=== PATIENT | male | born 1955 | race Caucasian/White ===

== ENCOUNTER → 2018-08-27 07:33 | Outpatient (CLI) | payer OTHER, SELFPAY ==
[2018-08-27 09:37] LABS: Creatinine Urine Random 335.4 mg/dL
[2018-08-27 09:42] LABS: Microalbumi Creatinin Ratio Ur 3.8 ug/mg CR (<30); Microalbumin Urine Random 1.3 mg/dL (0-1.6)
[2018-08-27 09:49] LABS: Alanine Aminotransferase 39 IU/L (21-72); Albumin 4.5 g/dL (3.5-5.0); Albumin Globulin Ratio 1.6 (1.0-2.8); Alkaline Phosphatase 48 U/L (38-126); Aspartate Aminotransferase 23 IU/L (17-59); Bilirubin Total 1.9 mg/dL (0.2-1.3); Blood Urea Nitrogen 14 mg/dL (9-20); Carbon Dioxide 28 mmol/L (22-32); Chloride 102 mmol/L (98-107); Cholesterol 144 mg/dL (140-199); Estimated Glomerular Filt Rate > 60.0 mL/min (>60); Globulin 2.8 g/dL (1.7-4.1); Glucose 99 mg/dL (80-110); HDL Cholesterol 64 mg/dL (40-60); HEMOLYSIS < 15 (0-50); LDL Cholesterol Calculated 62 mg/dL (<100); Potassium 4.6 mmol/L (3.4-5.1); Sodium 141 mmol/L (137-145); Total Protein 7.3 g/dL (6.3-8.2); Triglycerides 88 mg/dL (35-150)
[2018-08-27 10:04] LABS: Prostate Specific Antigen Scrn 1.57 ng/mL (0.1-4.0)
== END ==
PROVIDERS: PCP Family Medicine; Visit Provider Family Medicine
DX: E78.5 Hyperlipidemia, unspecified (principal); I10 Essential (primary) hypertension; Z00.00 Encounter for general adult medical examination without abnormal findings; Z12.5 Encounter for screening for malignant neoplasm of prostate
CPT/HCPCS: 36415; 80053; 80061; 82043; 82570; G0103

== ENCOUNTER 2019-01-17 07:43 | Day surgery (SDC) | payer OTHER, SELFPAY ==
--- NOTE | 2019-01-17 | PATH_ITS ---
[facility] Accession Number: [id number] . 01 Material submitted: . PART A: colon - TRANSVERSE COLON POLYPS PART B: rectum - RECTAL POLYPS . 01 Clinical history: . SCREENING COLONOSCOPY . 02 Diagnosis: A. Transverse Colon, Polyps, Biopsies: Tubular adenomas. . B. Rectum, Polyps, Biopsies: Tubular adenoma. Hyperplastic polyp. MRV/01/18/2019 . 02 Electronically signed: . Taylor Villanueva MD, Pathologist NPI- [id number] . 01 Gross description: . Part A: TRANSVERSE COLON POLYPS: Received in formalin are 2 fragment(s) of humphrey, soft tissue measuring 0.1 x 0.1 x 0.1 cm to 0.2 x 0.2 x 0.2 cm which is entirely submitted and submitted entirely in 1 cassette(s) Part B: RECTAL POLYPS: Received in formalin are 2 fragment(s) of humphrey, soft tissue measuring 0.2 x 0.2 x 0.2 cm to 0.3 x 0.3 x 0.2 cm which is entirely submitted and submitted entirely in 1 cassette(s) /DMC /DMC . 02 Pathologist provided ICD-10: D12.3, D12.8 . 02 CPT . 075879, 253901 Performed at: 01 [facility] [address], [place], [place] [id number] MD Zoltan Simpson MD Phone: [phone] Performed at: 02 [facility] [address] [place], [place] [id number] MD Taylor Villanueva MD Phone: [phone]
[2019-01-17 08:15] VITALS: BMI 27.3
[2019-01-17 08:18] VITALS: BP 142/92; PULSE 79; RESP 17; TEMP 36.3; O2SAT 94
--- NOTE | 2019-01-17 09:05 | PM.HP.1 ---
History of Present Illness Date Patient Seen: 01/17/19 Time Patient Seen: 09:05 Chief complaint: [id number] SCREENING COLONOSCOPY Narrative: 63-year-old man presents 10 years status post last screening colonoscopy. No family history of colorectal cancers, no known family history of colon polyps Without intestinal complaints today Prep went well Patient History Medical History (Updated 12/08/17 @ 08:45 by Josselyn Miranda) Hypertension (Chronic ~2013) Seasonal allergies (Chronic) Chickenpox (Resolved ~1959) Surgical History (Updated 12/08/17 @ 08:45 by Josselyn Miranda) Anesthesia (Inactive) History of cataract removal with insertion of prosthetic lens (~2013) Family History (Updated 05/26/16 @ 00:00 by Oksana Munoz DO) Brother Age: 62 Diabetes mellitus Brother Age: 64 Diabetes mellitus Father Age: 89 Hypertension Mother History of lymphoma Tobacco use Alcohol abuse Depression Social History household members: spouse Family & Social History Family History (Updated 05/26/16 @ 00:00 by Oksana Munoz DO) Brother Age: 62 Diabetes mellitus Brother Age: 64 Diabetes mellitus Father Age: 89 Hypertension Mother History of lymphoma Tobacco use Alcohol abuse Depression Social History: household members spouse Meds Home Medications Medication Instructions Recorded Confirmed Type OMEGA-3 FATTY ACIDS (FISH OIL) #0 03/25/16 09/05/18 History aspirin 81 mg PO DAILY #0 03/25/16 01/17/19 History cholecalciferol (vitamin D3) 2,000 mg PO DAILY #0 03/25/16 01/17/19 History [Vitamin D3] loratadine [Claritin Liqui-Gel] 10 mg PO QDAY #0 sgl 03/25/16 01/17/19 History losartan 50 mg PO BID #90 tab 03/07/18 01/17/19 Rx atorvastatin 10 mg tablet 10 mg PO QDAY #90 tab 01/14/19 01/17/19 Rx Allergies Allergy/AdvReac Type Severity Reaction Status Date / Time No Known Drug Allergies Allergy Verified 01/17/19 08:12 Review of Systems Constitutional Constitutional: Denies fever(s) Eyes Eyes: Denies bulging eyes ENT Ears, Nose, Mouth, and Throat: No lip swelling Cardiovascular Cardiovascular: Denies generalize swelling Respiratory Respiratory: Denies stridor Gastrointestinal Gastrointestinal: Denies coffee ground emesis Musculoskeletal Musculoskeletal: Denies loss of height Integumentary/Breasts Skin/Breast: Denies wounds Neurologic Neurologic: Denies abnormal speech and Denies confusion Psychiatric Psychiatric: Denies confusion Endocrine Endocrine: Denies deepening of the voice Hematologic/Lymphatic Hematologic/Lymphatic: Denies lymphadenopathy Allergic/Immunologic Allergic/Immunologic: Denies lip swelling Exam Vital Signs (past 8 hours): - 01/17/19 08:18 Temperature 97.4 F L Pulse Rate 79 Respiratory Rate 17 Blood Pressure 142/92 H Pulse Oximetry 94 Oxygen Delivery Method Room Air Const General: cooperative and healthy appearing Orientation: alert [facility] Head: normal to inspection Nose: nares normal Mouth: oral mucosae normal and lip normal Eyes Eyelids: eyelids normal Conjunctivae: conjunctivae normal Sclera: sclerae normal Neck Neck: supple and other (No thyromegally) Chest Chest: other (LCTAB , regular respiratory effort) Cardio Rhythm: regular rhythm Heart Sounds: S1 normal, S2 normal, no gallops, no murmurs and no rubs GI Other: Abdomen soft nontender nondistended Skin General: no rashes or lesions noted Neuro General: alert and awake Psych Appearance: grossly normal Affect: normal affect Assessment & Plan Assessment & Plan narrative: 63-year-old man presents for screening colonoscopy 10 years status post prior Risks and benefits of the procedure discussed including risk of , perforation, hypoxia, missed lesion All questions answered. Patient ready to proceed
[2019-01-17] MEDS: fentaNYL 250 MCG/5 ML INJ IV (09:21)
[2019-01-17] MEDS: MIDAZOLAM 5 MG/5 ML VIAL IV (09:34)
[2019-01-17] MEDS: GLUCAGON,HUMAN RECOMBINANT 1 MG/ML VIAL IV (09:39)
--- NOTE | 2019-01-17 09:45 | SUR.OPER ---
TOLERATED WELL, VITAL SIGNS STABLE
--- NOTE | 2019-01-17 09:53 | PM.OP.ENDO ---
Operative Date/Time/Diagnoses Date of procedure: 01/17/19 Time of procedure: 09:53 Pre-op diagnosis: Colorectal cancer screening Post-op diagnosis: same Procedure & Clinicians Study performed: Screening colonoscopy-complete Transverse colon polypectomy -cold biopsy forceps Transverse colon polypectomy -hot snare Rectal polypectomy x2 -cold biopsy forceps Same procedure as scheduled: Yes Indications: 63-year-old man with average risk of colorectal cancer presents 10 years status post most recent screening colonoscopy Surgeon: Rickie Carrillo Procedure Notes SCOAP/Timeout: Completed Procedure in detail: Patient was brought to the endoscopy suite, a time-out was completed. He was sedated over the entire course of the procedure with 150 micro g of fentanyl and 6 mg of midazolam. A digital rectal exam was performed without findings. 160 cm colonoscope was advanced through the anus and the folds of the rectum and colon until the cecum was reached. The cecum was identified via prominent ileocecal valve and appendiceal orifice. The scope was then carefully withdrawn inspecting the mucosal surfaces as this was done. A few scattered right-sided diverticula were noted. At the level of the transverse colon a small sessile polyp was identified. This was removed with cold biopsy forceps. Several cm more distal an additional small sessile polyp was identified -this was removed with hot snare -and captured via suction trap. The remainder of the colon appeared unremarkable Within the mid rectum -2 additional small sessile polyps were identified and removed via cold biopsy forcep The scope was retroflexed in the distal rectum without difficulty without further findings Prep was excellent Scope withdrawal time: 26 Sedation minutes: 40 Specimen(s): other (Transverse colon polyps x2, rectal polyps x2) Complications: none Impression: -right-sided diverticula -transverse polyp x2 -rectal polyp x2 Recommendations: Colonscopy in 3 years Plan for aftercare: PACU then home Follow up: as needed Disposition: PACU
[2019-01-17 09:57] VITALS: BP 106/70; PULSE 74; RESP 10; TEMP 36.5; O2SAT 96
[2019-01-17 10:02] VITALS: BP 109/76; PULSE 72; RESP 10; O2SAT 95
[2019-01-17 10:07] VITALS: BP 99/69; PULSE 67; RESP 11; O2SAT 94
[2019-01-17 10:13] VITALS: BP 100/65; PULSE 67; RESP 14; O2SAT 96
[2019-01-17 10:26] VITALS: BP 111/76; PULSE 65; RESP 16; TEMP 36.5; O2SAT 97
== END 2019-01-17 10:26 | disposition home or self-care (01) ==
PROVIDERS: PCP Family Medicine; Visit Provider Surgery
PROC: 0DJD8ZZ Inspection of Lower Intestinal Tract, Via Natural or Artificial Opening Endoscopic (ICD-10-PCS; CPT 45378; principal; 2019-01-17 08:45)
DX: Z12.11 Encounter for screening for malignant neoplasm of colon (principal); K57.30 Diverticulosis of large intestine without perforation or abscess without bleeding; D12.3 Benign neoplasm of transverse colon; D12.8 Benign neoplasm of rectum
CPT/HCPCS: 45385; 45380; 99152; 99153; J1610; J2250; J3010

== ENCOUNTER → 2019-12-20 07:23 | Outpatient (CLI) | payer OTHER, SELFPAY ==
[2019-12-20 08:15] LABS: Alanine Aminotransferase 24 IU/L (<50); Albumin 4.5 g/dL (3.5-5.0); Albumin Globulin Ratio 1.8 (1.0-2.8); Alkaline Phosphatase 44 U/L (38-126); Aspartate Aminotransferase 28 IU/L (17-59); BUN Creatinine Ratio 18.6 (6-22); Bilirubin Total 2.1 mg/dL (0.2-1.3); Blood Urea Nitrogen 18 mg/dL (9-20); Calcium 9.4 mg/dL (8.4-10.2); Carbon Dioxide 29 mmol/L (22-32); Chloride 104 mmol/L (98-107); Cholesterol 156 mg/dL (140-199); Estimated Glomerular Filt Rate > 60.0 mL/min (>60); Globulin 2.5 g/dL (1.7-4.1); Glucose 106 mg/dL (80-110); HDL Cholesterol 58 mg/dL (40-60); HEMOLYSIS < 15 (0-50); LDL Cholesterol Calculated 76 mg/dL (<100); Sodium 138 mmol/L (137-145); Triglycerides 111 mg/dL (35-150)
== END ==
PROVIDERS: PCP Family Medicine; Referring Provider Family Medicine; Visit Provider Family Medicine
DX: E78.5 Hyperlipidemia, unspecified (principal); I10 Essential (primary) hypertension
CPT/HCPCS: 36415; 80053; 80061

== ENCOUNTER → 2020-09-08 12:58 | Outpatient (CLI) | payer OTHER, SELFPAY ==
[2020-09-08] MEDS: COVID-19 VACC #1, MRNA(MOD) 100 MCG/0.5 ML VIAL IM (13:07)
== END ==
PROVIDERS: PCP Family Medicine; Visit Provider Internal Medicine
DX: Z23 Encounter for immunization (principal)
CPT/HCPCS: 0011A; 91301

== ENCOUNTER → 2020-10-02 15:11 | Outpatient (CLI) | payer OTHER, SELFPAY ==
[2020-10-02] MEDS: COVID-19 VACC #2, MRNA(MOD) 100 MCG/0.5 ML VIAL IM (15:20)
== END ==
PROVIDERS: PCP Family Medicine; Visit Provider Internal Medicine
DX: Z23 Encounter for immunization (principal)
CPT/HCPCS: 0012A; 91301

== ENCOUNTER → 2021-03-30 07:53 | Outpatient (CLI) | payer OTHER, SELFPAY ==
[2021-03-30 09:19] LABS: Alanine Aminotransferase 23 IU/L (<50); Albumin 4.4 g/dL (3.5-5.0); Albumin Globulin Ratio 1.6 (1.0-2.8); Alkaline Phosphatase 41 U/L (38-126); Aspartate Aminotransferase 24 IU/L (17-59); BUN Creatinine Ratio 17.2 (6-22); Bilirubin Total 1.8 mg/dL (0.2-1.3); Blood Urea Nitrogen 17 mg/dL (9-20); Calcium 9.1 mg/dL (8.4-10.2); Carbon Dioxide 30 mmol/L (22-32); Chloride 104 mmol/L (98-107); Cholesterol 163 mg/dL (140-199); Estimated Glomerular Filt Rate > 60.0 mL/min (>60); Globulin 2.7 g/dL (1.7-4.1); Glucose 100 mg/dL (80-110); HDL Cholesterol 66 mg/dL (40-60); HEMOLYSIS < 15 (0-50); LDL Cholesterol Calculated 76 mg/dL (<100); Potassium 4.3 mmol/L (3.4-5.1); Sodium 140 mmol/L (137-145); Total Protein 7.1 g/dL (6.3-8.2); Triglycerides 106 mg/dL (35-150)
[2021-03-30 09:44] LABS: Prostate Specific Antigen Scrn 1.74 ng/mL (0.1-4.0)
[2021-03-30 10:28] LABS: Creatinine Urine Random 147.1 mg/dL
[2021-04-02 16:55] LABS: Microalbumi Creatinin Ratio Ur 6.1 ug/mg CR (<30); Microalbumin Urine Random 0.9 mg/dL (0-1.6)
== END ==
PROVIDERS: PCP Family Medicine; Referring Provider Family Medicine; Visit Provider Family Medicine
DX: E78.5 Hyperlipidemia, unspecified (principal); N13.8 Other obstructive and reflux uropathy; N40.1 Benign prostatic hyperplasia with lower urinary tract symptoms; R17 Unspecified jaundice; R73.01 Impaired fasting glucose; Z12.5 Encounter for screening for malignant neoplasm of prostate
CPT/HCPCS: 36415; 80053; 80061; 82043; 82570; G0103

== ENCOUNTER → 2021-11-04 08:07 | Outpatient (CLI) | payer MEDICARE, SELFPAY ==
[2021-11-04 09:40] LABS: Add Manual Diff / Slide Review NO; Basophils Absolute Auto 0 /uL (0-100); Basophils Percent Auto 0.6 % (0-2); Eosinophils Absolute Auto 100 /uL (0-450); Eosinophils Percent Auto 1.6 % (2-4); Hemoglobin 15.3 g/dL (13.5-17.5); Lymphocytes Absolute Auto 1800 /uL (1100-4500); Lymphocytes Percent Auto 33.2 % (25-40); Mean Corpuscular HGB Conc 34.7 % (30-36); Mean Corpuscular Hemoglobin 30.9 PG (26-34); Mean Corpuscular Volume 89.1 fL (80-100); Monocytes Absolute Auto 400 /uL (0-900); Monocytes Percent Auto 7.6 % (3-14); Neutrophils Absolute Auto 3100 /uL (1500-7000); Platelet Count 183 X10^3/uL (150-400); Red Blood Cell Count 4.94 X10^6/uL (4.5-5.9); Red Cell Distribution Width 13.3 % (11.6-14.8); White Blood Cell Count 5.4 X10^3/uL (4.5-11.0)
[2021-11-04 09:47] LABS: Hemoglobin A1C% w Est Avg Glu 5.4 % (4.0-6.0)
[2021-11-04 10:08] LABS: Alanine Aminotransferase 29 IU/L (<50); Albumin 4.4 g/dL (3.5-5.0); Albumin Globulin Ratio 1.8 (1.0-2.8); Alkaline Phosphatase 43 U/L (38-126); Aspartate Aminotransferase 28 IU/L (17-59); BUN Creatinine Ratio 15.6 (6-22); Bilirubin Total 1.8 mg/dL (0.2-1.3); Blood Urea Nitrogen 15 mg/dL (9-20); Calcium 8.8 mg/dL (8.4-10.2); Carbon Dioxide 25 mmol/L (22-32); Chloride 104 mmol/L (98-107); Cholesterol 136 mg/dL (140-199); Estimated Glomerular Filt Rate > 60 mL/min (>60); Globulin 2.5 g/dL (1.7-4.1); Glucose 103 mg/dL (80-110); HDL Cholesterol 51 mg/dL (40-60); HEMOLYSIS < 15 (0-50); LDL Cholesterol Calculated 69 mg/dL (<100); Potassium 4.4 mmol/L (3.4-5.1); Sodium 137 mmol/L (137-145); Total Protein 6.9 g/dL (6.3-8.2); Triglycerides 81 mg/dL (35-150)
[2021-11-04 10:33] LABS: Creatinine Urine Random 142.8 mg/dL
[2021-11-04 10:37] LABS: Microalbumi Creatinin Ratio Ur 5.6 ug/mg CR (<30); Microalbumin Urine Random 0.8 mg/dL (0-1.6)
[2021-11-04 10:38] LABS: Prostate Specific Antigen 1.69 ng/mL (0.10-4.00)
== END ==
PROVIDERS: PCP Family Medicine; Referring Provider Family Medicine; Visit Provider Family Medicine
DX: E78.00 Pure hypercholesterolemia, unspecified (principal); R73.01 Impaired fasting glucose; I10 Essential (primary) hypertension; N40.1 Benign prostatic hyperplasia with lower urinary tract symptoms; N13.8 Other obstructive and reflux uropathy; R17 Unspecified jaundice
CPT/HCPCS: 36415; 80053; 80061; 82043; 82570; 83036; 84153; 85025

== ENCOUNTER → 2022-03-23 13:45 | Outpatient (CLI) | payer MEDICARE, SELFPAY ==
[2022-03-23 15:24] LABS: COVID19 -Nasal RAPID Negative (Negative)
== END ==
PROVIDERS: PCP Family Medicine; Visit Provider Surgery
DX: Z20.822 Contact with and (suspected) exposure to COVID-19 (principal); Z01.812 Encounter for preprocedural laboratory examination
CPT/HCPCS: 87635; C9803

== ENCOUNTER 2022-03-24 10:29 | Day surgery (SDC) | payer MEDICARE, SELFPAY ==
--- NOTE | 2022-03-24 | PATH_ITS ---
[facility] Accession Number: [id number] . 01 Material submitted: . PART A: cecum - CECAL POLYP X3 PART B: colon - ASCENDING POLYPS . 01 Diagnosis: A. Cecum, Polyp x3, Biopsy: Colonic mucosa with a benign lymphoid aggregate in 1 of 3 fragments. 2 fragments with mild surface hyperplastic changes. Additional levels were examined. Negative for dysplasia and malignancy. . B. Ascending Colon, Polyps, Biopsies: Tubular adenoma. Sessile serrated adenoma. MRV 03/29/2022 1712 Local . 01 Electronically signed: . Taylor Villanueva MD, Pathologist NPI- [id number] . 01 Gross description: . Part A: CECAL POLYP X3: Received in formalin are 3 fragment(s) of humphrey, soft tissue measuring 0.4 x 0.3 x 0.1 cm submitted entirely in 1 cassette(s) Part B: ASCENDING POLYPS: Received in formalin are 2 fragment(s) of humphrey, soft tissue measuring 0.4 x 0.1 x 0.1 cm to 0.2 x 0.1 x 0.1 cm submitted entirely in 1 cassette(s) /CPE 03/26/2022 0608 Local . 01 Pathologist provided ICD-10: D12.2 . 01 CPT . 090730, 191646 Specimen Comment: A courtesy copy of this report has been sent to [phone] Performed at: 01 [facility] [address] [place] [address], [place], [place] [id number] MD Zoltan Simpson MD Phone: [phone]
[2022-03-24 10:57] VITALS: BP 152/97; PULSE 59; RESP 66; TEMP 36.2; O2SAT 95; BMI 28.4
--- NOTE | 2022-03-24 11:57 | PM.HP.1 ---
History of Present Illness History of Present Illness Date Patient Seen: 03/24/22 Time Patient Seen: 11:57 Chief complaint: SCREENING COLONOSCOPY Narrative: Marco A is a 66-year-old man who has had polyps on prior colonoscopies. His last colonoscopy was about 3 years ago and there were multiple tubular adenomas resected. Patient History Medical History (Updated 03/24/22 @ 11:58 by Jimbo Ramirez MD) Atypical chest pain Chickenpox (~1959) Hypertension (~2013) Seasonal allergies Surgical History (Updated 12/08/17 @ 08:45 by Josselyn Miranda) Anesthesia History of cataract removal with insertion of prosthetic lens (~2013) Family & Social History Family History (Updated 05/26/16 @ 00:00 by Oksana Munoz DO) Brother Age: 65 Diabetes mellitus Brother Age: 67 Diabetes mellitus Father Age: 92 Hypertension Mother History of lymphoma Tobacco use Alcohol abuse Depression Social History: household members spouse Tobacco & Substance use: Smoking Status Never smoker alcohol intake current alcohol intake frequency 0-2 drinks per day Substance Use Type marijuana Meds Home Medications and Allergies Home Medications Medication Instructions Recorded Confirmed Type OMEGA-3 FATTY ACIDS (FISH OIL) ##0 03/25/16 11/16/21 History cholecalciferol (vitamin D3) 50 2,000 mg PO DAILY ##0 03/25/16 03/24/22 History mcg (2,000 unit) capsule (Vitamin D3) loratadine 10 mg capsule (Claritin 10 mg PO QDAY ##0 03/25/16 03/24/22 History Liqui-Gel) saw palmetto 1,000 mg capsule 1,000 mg PO DAILY 02/10/20 03/24/22 History atorvastatin 10 mg tablet (Lipitor) 10 mg PO QDAY #90 tabs 10/22/21 03/24/22 Rx losartan 100 mg tablet 100 mg PO DAILY #90 tabs 10/22/21 03/24/22 Rx sildenafil 100 mg tablet See Rx Instructions PO DAILY PRN 11/16/21 03/24/22 Rx sexual activity #10 tabs tamsulosin 0.4 mg capsule 0.4 mg PO BEDTIME #90 caps 11/16/21 03/24/22 Rx Allergies Allergy/AdvReac Type Severity Reaction Status Date / Time No Known Drug Allergies Allergy Verified 03/24/22 10:44 Exam Vital Signs (past 8 hours): - 10/06/22 10:57 Temperature 97.2 F L Pulse Rate 59 L Respiratory Rate 66 H Blood Pressure 152/97 H Pulse Oximetry 95 Oxygen Delivery Method Room Air Oxygen Delivery Method Room Air Const General: No acute distress Assessment & Plan Assessment and plan (1) Personal history of colonic polyps: Status: Acute Plan Marco A is a 66-year-old man who is here for colonoscopy for surveillance because of a history of colon polyps. We reviewed the risks and benefits and he would like to proceed. Time Spent With Patient Critical Care time: I spent a total of [] minutes of critical care time on this patient's care today; this time is exclusive of procedural time.
[2022-03-24] MEDS: fentaNYL 100 MCG/2 ML INJ IV (12:01)
[2022-03-24] MEDS: MIDAZOLAM 5 MG/5 ML VIAL 6 MG IV (12:01)
--- NOTE | 2022-03-24 12:30 | PM.OP.COLON ---
Operative Date/Time/Diagnoses Date of procedure: 03/24/22 Time of procedure: 12:30 Pre-op diagnosis: History of colon polyps Post-op diagnosis: same Procedure & Clinicians Study performed: Colonoscopy Same procedure as scheduled: Yes Surgeon: Jimbo Ramirez Procedure Notes Procedure in detail: Surgeon: Jimbo Ramirez MD Procedure: The patient was brought to the endoscopy suite, placed in left lateral decubitus position. The patient was connected to monitoring devices. A time-out was performed. Sedation was administered. Once the patient was adequately sedated, a digital rectal exam was performed and was normal. The scope was then inserted and advanced to the cecum where the appendiceal orifice was identified and photographed. The scope was then slowly withdrawn over greater than 6 minutes. The mucosa was thoroughly inspected. There were 3 small polyps in the cecum, each about 3 mm, each removed with a cold snare. There were a pair of 3 mm polyp ascending colon cold snare. The scope was retroflexed in the rectum. The scope was straightened and removed. The patient was awakened and brought to recovery. Versed: 6 mg Fentanyl: 100 mcg EBL: 5 mL Findings: 3 cecal polyps in 2 ascending colon polyps each about 3 mm. Scope withdrawal time: 18 Sedation minutes: 26 Post-procedure Recommendations: Will call with biopsy results Disposition: PACU
[2022-03-24 12:32] VITALS: BP 115/83; PULSE 64; RESP 15; TEMP 36.3; O2SAT 99
[2022-03-24 12:37] VITALS: BP 111/80; PULSE 62; RESP 14; O2SAT 98
== END 2022-03-24 12:55 | disposition home or self-care (01) ==
PROVIDERS: PCP Family Medicine; Referring Provider Surgery; Visit Provider Surgery
PROC: 0DJD8ZZ Inspection of Lower Intestinal Tract, Via Natural or Artificial Opening Endoscopic (ICD-10-PCS; CPT 45378; principal; 2022-03-24 11:30)
DX: Z12.11 Encounter for screening for malignant neoplasm of colon (principal); Z86.010 Personal history of colon polyps; D12.2 Benign neoplasm of ascending colon
CPT/HCPCS: 45385; 99152; 99153; J2250; J3010

== ENCOUNTER 2022-10-03 14:11 | Emergency (ER) | payer MEDICARE, SELFPAY ==
[2022-10-03] VITALS (9 sets, daily range): BP systolic 138–172; BP diastolic 88–93; PULSE 69–86; RESP 15–18; TEMP 36.6; O2SAT 97–98; BMI 27.7
--- NOTE | 2022-10-03 14:23 | DI.RAD.S_ITS ---
PROCEDURE: XR CHEST 1V INDICATIONS: chest pain TECHNIQUE: One view of the chest was acquired. COMPARISON: [facility], , CHEST 1 VIEW, 03/25/2016, 10:22. FINDINGS: Surgical changes and devices: None. Lungs and pleura: Lungs are clear. No pleural effusions or pneumothorax. Mediastinum: Mediastinal contours appear normal. Heart size is normal. Bones and chest wall: No suspicious bony lesions. Overlying soft tissues appear unremarkable. IMPRESSION: No acute cardiopulmonary process. Dictated by: Maciej Belcher M.D. on 10/03/2022 at 14:46 Approved by: Maciej Belcher M.D. on 10/03/2022 at 14:47
[2022-10-03 14:38] LABS: Add Manual Diff / Slide Review NO; Basophils Absolute Auto 0 /uL (0-100); Basophils Percent Auto 0.5 % (0-2); Eosinophils Absolute Auto 100 /uL (0-450); Eosinophils Percent Auto 1.3 % (2-4); Hematocrit 47.8 % (41-53); Hemoglobin 16.7 g/dL (13.5-17.5); Lymphocytes Absolute Auto 2600 /uL (1100-4500); Lymphocytes Percent Auto 29.8 % (25-40); Mean Corpuscular Hemoglobin 31.2 PG (26-34); Monocytes Absolute Auto 500 /uL (0-900); Monocytes Percent Auto 5.7 % (3-14); Neutrophils Absolute Auto 5600 /uL (1500-7000); Neutrophils Percent Auto 62.7 % (50-75); Platelet Count 196 X10^3/uL (150-400); Red Blood Cell Count 5.37 X10^6/uL (4.5-5.9); Red Cell Distribution Width 14.1 % (11.6-14.8); White Blood Cell Count 8.9 X10^3/uL (4.5-11.0)
[2022-10-03 14:45] LABS: INR 1.1 (0.9-1.3); Prothrombin Time 13.1 SECONDS (10.1-12.7)
[2022-10-03 14:48] LABS: PTT Partial Thromboplastin Tim 28 SECONDS (26-36)
[2022-10-03 14:54] LABS: Blood Urea Nitrogen 13 mg/dL (9-20); Carbon Dioxide 30 mmol/L (22-32); Chloride 100 mmol/L (98-107); Creatine Kinase 69 U/L (55-170); HEMOLYSIS < 15 (0-50); Potassium 3.8 mmol/L (3.4-5.1); Sodium 140 mmol/L (137-145)
[2022-10-03 14:55] LABS: Alanine Aminotransferase 32 IU/L (<50); Albumin 4.5 g/dL (3.5-5.0); Albumin Globulin Ratio 1.3 (1.0-2.8); Alkaline Phosphatase 64 U/L (38-126); Aspartate Aminotransferase 28 IU/L (17-59); BUN Creatinine Ratio 15.3 (6-22); Bilirubin Total 1.5 mg/dL (0.2-1.3); Calcium 9.2 mg/dL (8.4-10.2); Estimated Glomerular Filt Rate > 60 mL/min (>60); Globulin 3.6 g/dL (1.7-4.1); Glucose 134 mg/dL (80-110); Lipase 320 U/L (23-300); Magnesium 1.9 mg/dL (1.6-2.3); Total Protein 8.1 g/dL (6.3-8.2)
[2022-10-03 15:05] LABS: Troponin I < 0.012 ng/mL (0.01-0.034)
--- NOTE | 2022-10-03 15:05 | PC.NURSE ---
Patient took 3 baby aspirin prior to arrival. Dr. Pappas notified and asked if he wanted to give the 4th 81mg. Provider stated 3 was sufficient. 324mg aspirin order placed not given in MAR per provider.
[2022-10-03 15:06] LABS: COVID19 -Nasal RAPID Negative (Negative)
--- NOTE | 2022-10-03 15:34 | ED_ITS ---
HPI - Chest Pain General Chief Complaint: Chest Pain Stated Complaint: chest pain T-1 Time Seen by Provider: 10/03/22 14:29 Source: patient and family Mode of arrival: Ambulatory Limitations: no limitations History of Present Illness HPI narrative: Patient is a 67 year old male who is here for evaluation approximately 24 hours of left-sided chest discomfort. He states it has been consistent during that time. It is a dull pain that is on the left side of his chest. Does not radiate anywhere. No shortness of breath. No lightheadedness. No skin changes. Abdominal pain nausea vomiting. He was sitting at the time of onset. Not worse with palpation or movement. He has had this discomfort in the past and was seen here in the emergency department without specific etiology. He is not had a stress test since that time. That was a couple years ago. He did have a stress test greater than 20 years ago. He did take aspirin prior to arrival. Related Data Home Medications Medication Instructions Recorded Confirmed OMEGA-3 FATTY ACIDS (FISH OIL) ##0 03/25/16 11/16/21 cholecalciferol (vitamin D3) 50 2,000 mg PO DAILY ##0 03/25/16 03/24/22 mcg (2,000 unit) capsule (Vitamin D3) loratadine 10 mg capsule (Claritin 10 mg PO QDAY ##0 03/25/16 03/24/22 Liqui-Gel) saw palmetto 1,000 mg capsule 1,000 mg PO DAILY 02/10/20 03/24/22 Previous Rx's Medication Instructions Recorded atorvastatin 10 mg tablet (Lipitor) 10 mg PO QDAY #90 tabs 10/22/21 tamsulosin 0.4 mg capsule 0.4 mg PO BEDTIME #90 caps 11/16/21 losartan 100 mg tablet 50 mg PO DAILY #90 tabs 06/21/22 nifedipine 30 mg tablet,extended 30 mg PO DAILY #60 tabs 06/21/22 release sildenafil 100 mg tablet See Rx Instructions .Route 09/12/22 .COMPLEX #10 tabs Allergies Allergy/AdvReac Type Severity Reaction Status Date / Time No Known Drug Allergies Allergy Verified 03/24/22 10:44 Review of Systems Constitutional Constitutional: Reports system reviewed and no additional complaints, except as documented Cardiovascular Cardiovascular: Reports system reviewed and no additional complaints, except as documented Respiratory Respiratory: Reports system reviewed and no additional complaints, except as documented Gastrointestinal Gastrointestinal: Reports system reviewed and no additional complaints, except as documented Integumentary/Breasts Skin/Breast: Reports system reviewed and no additional complaints, except as documented Neurologic Neurologic: Reports system reviewed and no additional complaints, except as documented Hematologic/Lymphatic On Anticoagulants: No Patient History Medical History Atypical chest pain Chickenpox (~1959) Hypertension (~2013) Seasonal allergies Surgical History (Updated 12/08/17 @ 08:45 by Josselyn Miranda) Anesthesia History of cataract removal with insertion of prosthetic lens (~2013) Family History (Updated 05/26/16 @ 00:00 by Oksana Munoz DO) Brother Age: 66 Diabetes mellitus Brother Age: 68 Diabetes mellitus Father Age: 93 Hypertension Mother History of lymphoma Tobacco use Alcohol abuse Depression Social History household members: spouse Smoking Status: Never smoker alcohol intake: current Smoking Status: Never smoker alcohol intake frequency: 0-2 drinks per day Substance Use Type: marijuana Exam Initial Vital Signs Initial Vital Signs: Vital Signs Temperature 97.8 F 10/03/22 14:15 Pulse Rate 86 10/03/22 14:15 Respiratory Rate 16 10/03/22 14:15 Blood Pressure 172/93 H 10/03/22 14:15 Pulse Oximetry 97 10/03/22 14:15 Oxygen Delivery Method Room Air 10/03/22 14:15 Const General: cooperative, comfortable and No ill appearing HENMT Head: normal to inspection and normocephalic Chest Chest: No crepitus and No tenderness Resp Effort & Inspection: normal respiratory effort Auscultation: clear to auscultation bilaterally Cardio Rate: regular rate Rhythm: regular rhythm GI Inspection: normal to inspection and non-distended Palpation: soft and No tender Skin General: no rashes or lesions noted Extrem General: No edema Scores HEART Score Heart Score history: Slightly Suspicious Heart Score EKG: Normal Heart Score Age: > or = 65 years old Heart Score risk factors: 1-2 risk factors Heart Score troponin: < or = to normal limit Heart Score Total: 3 Course Orders Ordered: ED Orders 10/03/22 14:23 XR chest 1V Stat EKG-12 Lead Stat 10/03/22 14:25 Complete Blood Count AUTO DIFF Stat Comprehensive Metabolic Panel Stat Lipase Stat Magnesium Stat PTT Partial Thromboplastin Clarence Stat Prothrombin Time INR Stat Troponin & CK Cardiac Panel Stat 10/03/22 14:40 COVID19 -Nasal RAPID Stat Discontinued Medications Aspirin (Aspirin 81 Mg Chew Tab) 324 mg PO NOW ONE Stop: 10/03/22 14:24 Last Admin: 10/03/22 15:05 Dose: Not Given Documented By: RB Vital Signs Vital signs: Vital Signs - 8 hr 10/03/22 14:15 10/03/22 14:20 10/03/22 14:20 Temperature 97.8 F Pulse Rate 86 82 Respiratory Rate 16 Blood Pressure 172/93 H 172/93 H Pulse Oximetry 97 98 Oxygen Delivery Method Room Air 10/03/22 14:30 10/03/22 14:45 10/03/22 15:00 Temperature Pulse Rate 79 75 73 Respiratory Rate 15 18 Blood Pressure Pulse Oximetry 98 98 98 Oxygen Delivery Method 10/03/22 15:15 Temperature Pulse Rate 73 Respiratory Rate 16 Blood Pressure Pulse Oximetry 97 Oxygen Delivery Method MDM - Chest Pain Lab Data Attestation: I reviewed the patient's lab results. 10/03/22 14:25 10/03/22 14:25 Labs: Lab Results 10/03/22 10/03/22 10/03/22 Range/Units 14:25 14:25 14:25 WBC 8.9 (4.5-11.0) X10^3/uL RBC 5.37 (4.5-5.9) X10^6/uL Hgb 16.7 (13.5-17.5) g/dL Hct 47.8 (41-53) % MCV 89.0 (80-100) fL MCH 31.2 (26-34) PG MCHC 35.0 (30-36) % RDW 14.1 (11.6-14.8) % Plt Count 196 (150-400) X10^3/uL Neut % (Auto) 62.7 (50-75) % Lymph % (Auto) 29.8 (25-40) % [place] % (Auto) 5.7 (3-14) % Eos % (Auto) 1.3 L (2-4) % Baso % (Auto) 0.5 (0-2) % Neut # (Auto) 5600 (1534-0677) /uL Lymph # (Auto) 2600 (6169-0763) /uL [place] # (Auto) 500 (0-900) /uL Eos # (Auto) 100 (0-450) /uL Baso # (Auto) 0 (0-100) /uL PT 13.1 H (10.1-12.7) SECONDS INR 1.1 (0.9-1.3) APTT 28 (26-36) SECONDS Sodium 140 (137-145) mmol/L Potassium 3.8 (3.4-5.1) mmol/L Chloride 100 (98-107) mmol/L Carbon Dioxide 30 (22-32) mmol/L BUN 13 (9-20) mg/dL Creatinine 0.85 (0.66-1.25) mg/dL Estimated GFR > 60 (>60) mL/min BUN/Creatinine Ratio 15.3 (6-22) Glucose 134 H (80-110) mg/dL Calcium 9.2 (8.4-10.2) mg/dL Magnesium 1.9 (1.6-2.3) mg/dL Total Bilirubin 1.5 H (0.2-1.3) mg/dL AST 28 (17-59) IU/L ALT 32 (<50) IU/L Alkaline Phosphatase 64 (38-126) U/L Total Creatine Kinase 69 (55-170) U/L CK-MB (CK-2) TNP CK-MB (CK-2) Rel Index TNP Troponin I < 0.012 (0.01-0.034) ng/mL Total Protein 8.1 (6.3-8.2) g/dL Albumin 4.5 (3.5-5.0) g/dL Globulin 3.6 (1.7-4.1) g/dL Albumin/Globulin Ratio 1.3 (1.0-2.8) Lipase 320 H (23-300) U/L SARS-CoV-2 (PCR) (Negative) 10/03/22 Range/Units 14:40 WBC (4.5-11.0) X10^3/uL RBC (4.5-5.9) X10^6/uL Hgb (13.5-17.5) g/dL Hct (41-53) % MCV (80-100) fL MCH (26-34) PG MCHC (30-36) % RDW (11.6-14.8) % Plt Count (150-400) X10^3/uL Neut % (Auto) (50-75) % Lymph % (Auto) (25-40) % [place] % (Auto) (3-14) % Eos % (Auto) (2-4) % Baso % (Auto) (0-2) % Neut # (Auto) (4106-6680) /uL Lymph # (Auto) (0290-3636) /uL [place] # (Auto) (0-900) /uL Eos # (Auto) (0-450) /uL Baso # (Auto) (0-100) /uL PT (10.1-12.7) SECONDS INR (0.9-1.3) APTT (26-36) SECONDS Sodium (137-145) mmol/L Potassium (3.4-5.1) mmol/L Chloride (98-107) mmol/L Carbon Dioxide (22-32) mmol/L BUN (9-20) mg/dL Creatinine (0.66-1.25) mg/dL Estimated GFR (>60) mL/min BUN/Creatinine Ratio (6-22) Glucose (80-110) mg/dL Calcium (8.4-10.2) mg/dL Magnesium (1.6-2.3) mg/dL Total Bilirubin (0.2-1.3) mg/dL AST (17-59) IU/L ALT (<50) IU/L Alkaline Phosphatase (38-126) U/L Total Creatine Kinase (55-170) U/L CK-MB (CK-2) CK-MB (CK-2) Rel Index Troponin I (0.01-0.034) ng/mL Total Protein (6.3-8.2) g/dL Albumin (3.5-5.0) g/dL Globulin (1.7-4.1) g/dL Albumin/Globulin Ratio (1.0-2.8) Lipase (23-300) U/L SARS-CoV-2 (PCR) Negative (Negative) Imaging Data Chest x-ray: Radiologist's Impression: PROCEDURE:? XR CHEST 1V ? INDICATIONS:? chest pain ? TECHNIQUE:? One view of the chest was acquired.? ? COMPARISON:? [facility], CR, CHEST 1 VIEW, 03/25/2016, 10:22. ? FINDINGS:? ? Surgical changes and devices:? None.? ? Lungs and pleura:? Lungs are clear.? No pleural effusions or pneumothorax.? ? Mediastinum:? Mediastinal contours appear normal.? Heart size is normal.? ? Bones and chest wall:? No suspicious bony lesions.? Overlying soft tissues appear unremarkable.? ? IMPRESSION:? No acute cardiopulmonary process. ECG Data Attestation: I personally reviewed and interpreted this ECG as follows: Interpretation: Sinus rhythm Ventricular rate 82 Occasional PAC QRS 130 milliseconds Normal QTC No ST T wave changes MDM Narrative Medical decision making narrative: Patient has had approximately 24 hours of consistent left-sided chest discomfort. EKG chest x-ray unremarkable. Troponin negative. Low risk heart score. Chest x-ray does not show any signs of pneumonia. There are no skin changes over the area. His abdominal labs are unremarkable. Unsure the exact etiology however the patient can contact his primary doctor for a follow-up and to discuss the indications for a stress test which I recommended to him. He was given specific return precautions and follow-up instructions. He expressed understanding and agreement. Discharge Plan Departure Patient Disposition: Home Clinical Impression: Atypical chest pain Instructions: DI for Atypical Chest Pain Activity Restrictions/Additional Instructions: I recommend that you continue to take all of your medications as directed. I do recommend that you follow-up with your primary doctor to discuss the indications for a stress test. Return to the emergency department for new or worsening symptoms. Prescriptions: No Action cholecalciferol (vitamin D3) [Vitamin D3] 2,000 unit capsule 2,000 mg PO DAILY Qty: 0 OMEGA-3 FATTY ACIDS (FISH OIL) Qty: 0 Claritin Liqui-Gel 10 mg capsule 10 mg PO QDAY Qty: 0 atorvastatin [Lipitor] 10 mg tablet 10 mg PO QDAY Qty: 90 3RF nifedipine 30 mg tablet extended release 30 mg PO DAILY Qty: 60 0RF losartan 100 mg tablet 50 mg PO DAILY Qty: 90 3RF sildenafil 100 mg tablet See Rx Instructions .ROUTE .COMPLEX Qty: 10 0RF Dose Instruction: TAKE 1/2 TO ONE TABLET BY MOUTH NEEDED FOR SEXUAL ACTIVITY. TAKE 30 TO 4 HOURS BEFORE ACTIVITY. Rx Instructions: TAKE 1/2 TO ONE TABLET BY MOUTH NEEDED FOR SEXUAL ACTIVITY. TAKE 30 TO 4 HOURS BEFORE ACTIVITY. saw zekeo 1,000 mg capsule 1,000 mg PO DAILY Rx Instructions: give with food (meal/snack) tamsulosin 0.4 mg capsule 0.4 mg PO BEDTIME Qty: 90 3RF Referrals: Mahamed Garnica MD [Primary Care Provider] - Stand Alone Forms: Patient Portal/API
== END 2022-10-03 15:50 | disposition home or self-care (01) ==
PROVIDERS: Emergency Provider Emergency Medicine; PCP Family Medicine
DX: R07.89 Other chest pain (principal); R10.9 Unspecified abdominal pain; Z20.822 Contact with and (suspected) exposure to COVID-19
CPT/HCPCS: 36415; 71045; 80053; 82550; 83690; 83735; 84484; 85025; 85610; 85730; 87635; 93005; 93010; 99284; C9803

== ENCOUNTER → 2022-11-17 07:26 | Outpatient (CLI) | payer MEDICARE, SELFPAY ==
--- NOTE | 2022-11-17 07:28 | DI.ECHO.S_ITS ---
[facility]---------+ [facility] +---------+ : : [address] : : : : [id number] : : : : Phone: [phone] Echocardiogram Report + + :Name: RICHARD MARK Study Date: 11/17/2022 Height: 70 in : :[facility] ReadingLocation: Weight: 200 lb : : Gender: Male BSA: 2.1 m2 : :: 1955 Age: 67 yrs BP: 136/103 mmHg: :Reason For Study: CHEST PAIN : :Ordering Physician: ZACHARY, : :HUMBERTO Performed By: Courtney Ryan : :Referring: HUMBERTO SHARMA : + + Interpretation Summary The left ventricle is normal in size and wall thickness. The ejection fraction is estimated to be 60-65%. There are no focal wall motion abnormalities. Diastolic parameters suggest probable normal left ventricular diastolic function and normal filling pressures. The right ventricle is normal in size and function. The right ventricular systolic pressure is estimated to be at least 32 mmHg based on an estimated right atrial pressure of 3 mm Hg. The left atrial size is normal. Right atrial size is normal. There is no significant valvular heart disease. The aortic root is normal size. Procedure: A two-dimensional transthoracic echocardiogram with color flow and Doppler was performed. The study quality was technically adequate. Comparison is made with the echocardiogram of 05/10/2016. The patient was in sinus rhythm with heart rates between 66-75 bpm during the exam. Left Ventricle: The left ventricle is normal in size and wall thickness. The ejection fraction is estimated to be 60-65%. There are no focal wall motion abnormalities. Diastolic parameters suggest probable normal left ventricular diastolic function and normal filling pressures. Right Ventricle: The right ventricle is normal in size and function. Atria: The left atrial size is normal. Right atrial size is normal. There is no Doppler evidence for an interatrial shunt. Interatrial septal thickening is noted. Mitral Valve: The mitral valve is normal in structure and function. There is no mitral regurgitation noted. Aortic Valve: The aortic valve is trileaflet. The aortic valve opens well. There is no aortic valve stenosis. No aortic regurgitation is present. Tricuspid Valve: The tricuspid valve is normal in structure and function. There is mild tricuspid regurgitation. The right ventricular systolic pressure is estimated to be at least 32 mmHg based on an estimated right atrial pressure of 3 mm Hg. Pulmonic Valve: The pulmonic valve leaflets are thin and pliable; valve motion is normal. There is trace pulmonic regurgitation. There is no significant valvular heart disease. Great Vessels: The aortic root is normal size. The dimensions of the ascending aorta are normal. The IVC is of normal diameter and collapses greater than 50% with a sniff. This suggests a low right atrial pressure of 3 mm Hg. Pericardium/ Pleura There is no pericardial effusion. There is no pleural effusion. MMode/2D Measurements & Calculations LVIDd: 4.5 cm LVOT diam: 2.3 cm LVIDs: 2.8 cm Ao root diam: 3.5 cm FS: 37.8 % asc Aorta Diam: 3.4 cm EPSS: 0.47 cm Ao Arch Diam (Prox Trans): 3.0 cm IVSd: 0.78 cm LVPWd: 0.62 cm LV bolanos. diameter/BSA (cm/m^2): 2.2 LV sys. diameter/BSA (cm/m^2): 1.4 LA A2 area: 21.6 cm2 RA long axis: 5.4 cm LA A4 area: 17.6 cm2 RA area: 15.2 cm2 LA length (vol): 5.5 cm RA vol: 36.3 ml LA vol: 59.0 ml RA : 17.4 ml/m2 LA vol index: 28.2 ml/m2 IVC diam: 0.90 cm RVD1 (basal): 3.9 cm RVD2 (mid): 3.3 cm TAPSE: 2.1 cm Doppler Measurements & Calculations Ao V2 max: 182.7 cm/sec LVOT Max Monty: 137.3 cm/sec Ao V2 mean: 124.0 cm/sec LV V1 max P.5 mmHg Ao max P.4 mmHg LV V1 VTI: 26.1 cm Ao mean P.9 mmHg KELECHI(I,D): 3.1 cm2 Ao V2 VTI: 33.5 cm KELECHI(V,D): 3.0 cm2 sev ratio: 0.78 KELECHI indexed to BSA (cm^2/m^2): 1.5 MV E max monty: 71.8 cm/sec TR max monty: 267.6 cm/sec MV A max monty: 68.3 cm/sec TR max P.6 mmHg MV E/A: 1.1 PA V2 max: 126.3 cm/sec Med Peak E' Monty: 6.8 cm/sec PA V2 mean: 94.5 cm/sec E/E' med: 10.6 PA mean P.9 mmHg Lat Peak E' Monty: 10.5 cm/sec PA pr(Accel): 36.2 mmHg E/E' lat: 6.8 E/e' average: 8.7 MV dec time: 0.23 sec SV(LVOT): 104.6 ml Reading Physician:03:52 PM
[2022-11-17 08:38] LABS: Add Manual Diff / Slide Review NO; Basophils Absolute Auto 0 /uL (0-100); Basophils Percent Auto 0.6 % (0-2); Eosinophils Absolute Auto 100 /uL (0-450); Lymphocytes Absolute Auto 2100 /uL (1100-4500); Lymphocytes Percent Auto 34.7 % (25-40); Mean Corpuscular HGB Conc 34.8 % (30-36); Mean Corpuscular Hemoglobin 31.3 PG (26-34); Mean Corpuscular Volume 90.1 fL (80-100); Monocytes Absolute Auto 500 /uL (0-900); Monocytes Percent Auto 8.3 % (3-14); Neutrophils Absolute Auto 3300 /uL (1500-7000); Neutrophils Percent Auto 54.4 % (50-75); Platelet Count 199 X10^3/uL (150-400); Red Cell Distribution Width 13.8 % (11.6-14.8)
[2022-11-17 08:42] LABS: Alanine Aminotransferase 29 IU/L (<50); Albumin 4.4 g/dL (3.5-5.0); Albumin Globulin Ratio 1.6 (1.0-2.8); Alkaline Phosphatase 50 U/L (38-126); Aspartate Aminotransferase 27 IU/L (17-59); BUN Creatinine Ratio 16.1 (6-22); Bilirubin Total 1.8 mg/dL (0.2-1.3); Blood Urea Nitrogen 15 mg/dL (9-20); Calcium 8.8 mg/dL (8.4-10.2); Carbon Dioxide 29 mmol/L (22-32); Chloride 100 mmol/L (98-107); Cholesterol 164 mg/dL (140-199); Estimated Glomerular Filt Rate > 60 mL/min (>60); Globulin 2.7 g/dL (1.7-4.1); Glucose 109 mg/dL (80-110); HDL Cholesterol 71 mg/dL (40-60); HEMOLYSIS < 15 (0-50); LDL Cholesterol Calculated 72 mg/dL (<100); Potassium 4.2 mmol/L (3.4-5.1); Sodium 136 mmol/L (137-145); Total Protein 7.1 g/dL (6.3-8.2); Triglycerides 107 mg/dL (35-150)
--- NOTE | 2022-11-18 02:17 | DI.NM.S_ITS ---
DATE OF SERVICE: 11/17/2022 PROCEDURE: Exercise perfusion study. INDICATION: Chest pain with underlying hypertension and hyperlipidemia. RADIOPHARMACEUTICAL: 26.6 millicurie technetium-99m Myoview IV was injected at stress and 11.6 millicurie technetium-99m Myoview IV was injected at rest. Stress: Patient underwent exercise perfusion stress test under the supervision of an attending staff. The patient walked on Danie protocol for 10 minutes and 28 seconds, achieved maximum heart rate of 146, which was 95% of target heart rate. Resting blood pressure 134/84. Peak blood pressure 200/100 mmHg. Achieved 12.8 METs of workload. JODI -33%. Baseline rhythm was sinus with right bundle branch block. During stress no new convincing ischemic changes seen. No new significant arrhythmias other than some PACs. No anginal symptoms. RAW DATA: Increased subdiaphragmatic activity. GATED STUDY: Resting LV ejection fraction 77 and stress LV ejection fraction 80% without any obvious wall motion abnormalities. Resting end-diastolic volume 79 mL. TID ratio 0.73, which is within normal limits. Lung/heart ratio 0.14, which is within normal limits. MYOCARDIAL PERFUSION SCAN: Stress supine, resting supine, and stress prone images were compared to each other. Stress supine and resting supine images revealed moderate-size, mild to moderately decreased perfusion of inferior wall and inferoapex, which got completely resolved during stress prone images suggestive of diaphragmatic tissue attenuation artifact. No obvious ischemia or infarction pattern seen. CONCLUSION: This is a normal myocardial perfusion study with evidence of diaphragmatic tissue attenuation artifact which got completely resolved during stress prone images. Excellent exercise tolerance. Hypertensive blood pressure response. Peak blood pressure 200/100. No ischemic changes. Baseline right bundle branch block with sinus rhythm. During stress, no sustained significant arrhythmias. Preserved left ventricular function. Overall, low-risk myocardial perfusion scan. Indra Reyez - TRINO/adebayo/xochilt doc#: [id number]/job#: [id number] dd: 11/17/2022 16:34:00 dt: 11/18/2022 02:06:00 DICTATING MD/COPIES TO: Kim Hilario MD COPIES MNE: [place];
[2022-11-23 09:14] LABS: Percent Free Testosterone 2.74 % (1.50-4.20); Testosterone Free 10.98 ng/dL (5.00-21.00); Testosterone Total 400.8 ng/dL (264.0-916.0)
== END ==
PROVIDERS: PCP Family Medicine; Referring Provider Family Medicine; Visit Provider Family Medicine
DX: R07.89 Other chest pain (principal); N40.1 Benign prostatic hyperplasia with lower urinary tract symptoms; E78.00 Pure hypercholesterolemia, unspecified; I10 Essential (primary) hypertension; I45.10 Unspecified right bundle-branch block; M62.81 Muscle weakness (generalized); N52.9 Male erectile dysfunction, unspecified; N13.8 Other obstructive and reflux uropathy; R17 Unspecified jaundice; R73.01 Impaired fasting glucose
CPT/HCPCS: 36415; 78452; 80053; 80061; 84153; 84402; 84403; 85025; 93017; 93306; A9502

== ENCOUNTER → 2022-12-01 07:51 | Outpatient (CLI) | payer MEDICARE, SELFPAY ==
--- NOTE | 2022-12-01 07:52 | DI.RAD.S_ITS ---
PROCEDURE: XR KNEE LT 3V INDICATIONS: left knee pain TECHNIQUE: 3 views of the knee were acquired. COMPARISON: None. FINDINGS: Bones: No fractures or dislocations. No suspicious bony lesions. Soft tissues: Small joint effusion. No suspicious soft tissue calcifications. IMPRESSION: Small knee joint effusion, without displaced fracture. Dictated by: Maciej Belcher M.D. on 12/01/2022 at 9:39 Approved by: Maciej Belcher M.D. on 12/01/2022 at 9:41
== END ==
PROVIDERS: PCP Family Medicine; Referring Provider Family Medicine; Visit Provider Family Medicine
DX: M25.562 Pain in left knee (principal); M25.462 Effusion, left knee
CPT/HCPCS: 73562

== ENCOUNTER → 2023-02-28 07:22 | Outpatient (CLI) | payer MEDICARE, SELFPAY ==
[2023-02-28 09:44] LABS: Creatinine Urine Random 202.2 mg/dL
[2023-02-28 09:49] LABS: Microalbumi Creatinin Ratio Ur 2.9 ug/mg CR (<30); Microalbumin Urine Random 0.6 mg/dL (0-1.6)
== END ==
PROVIDERS: PCP Family Medicine; Referring Provider Family Medicine; Visit Provider Family Medicine
DX: I10 Essential (primary) hypertension (principal); R17 Unspecified jaundice
CPT/HCPCS: 82043; 82570

== ENCOUNTER → 2023-08-31 07:34 | Outpatient (CLI) | payer MEDICARE, SELFPAY ==
[2023-08-31 08:21] LABS: Hemoglobin A1C% w Est Avg Glu 5.4 % (4.0-6.0)
[2023-08-31 08:24] LABS: Alanine Aminotransferase 25 IU/L (<50); Albumin Globulin Ratio 1.3 (1.0-2.8); Alkaline Phosphatase 47 U/L (38-126); Aspartate Aminotransferase 25 IU/L (17-59); BUN Creatinine Ratio 11.5 (6-22); Blood Urea Nitrogen 11 mg/dL (9-20); Calcium 9.2 mg/dL (8.4-10.2); Carbon Dioxide 27 mmol/L (22-32); Chloride 104 mmol/L (98-107); Cholesterol 151 mg/dL (140-199); Estimated Glomerular Filt Rate > 60 mL/min (>60); Globulin 3.2 g/dL (1.7-4.1); Glucose 113 mg/dL (80-110); HDL Cholesterol 65 mg/dL (40-60); HEMOLYSIS < 15 (0-50); LDL Cholesterol Calculated 65 mg/dL (<100); Potassium 4.1 mmol/L (3.4-5.1); Sodium 138 mmol/L (137-145); Total Protein 7.2 g/dL (6.3-8.2); Triglycerides 106 mg/dL (35-150)
[2023-08-31 08:39] LABS: Add Manual Diff / Slide Review NO; Basophils Absolute Auto 0 /uL (0-100); Basophils Percent Auto 0.6 % (0-2); Eosinophils Absolute Auto 100 /uL (0-450); Eosinophils Percent Auto 1.7 % (2-4); Hematocrit 46.1 % (41-53); Lymphocytes Absolute Auto 2000 /uL (1100-4500); Lymphocytes Percent Auto 33.9 % (25-40); Mean Corpuscular HGB Conc 34.8 % (30-36); Mean Corpuscular Hemoglobin 30.9 PG (26-34); Mean Corpuscular Volume 88.7 fL (80-100); Monocytes Absolute Auto 900 /uL (0-900); Monocytes Percent Auto 15.4 % (3-14); Neutrophils Absolute Auto 2800 /uL (1500-7000); Neutrophils Percent Auto 48.4 % (50-75); Platelet Count 175 X10^3/uL (150-400); Red Blood Cell Count 5.19 X10^6/uL (4.5-5.9); Red Cell Distribution Width 14.1 % (11.6-14.8); White Blood Cell Count 5.9 X10^3/uL (4.5-11.0)
[2023-08-31 08:51] LABS: Prostate Specific Antigen Scrn 2.13 ng/mL (0.1-4.0)
[2023-08-31 08:54] LABS: Creatinine Urine Random 83.4 mg/dL
[2023-08-31 09:08] LABS: Microalbumin Urine Random < 0.6 mg/dL (0-1.6)
== END ==
PROVIDERS: PCP Family Medicine; Referring Provider Family Medicine; Visit Provider Family Medicine
DX: Z00.00 Encounter for general adult medical examination without abnormal findings (principal); R73.01 Impaired fasting glucose; I10 Essential (primary) hypertension; Z12.5 Encounter for screening for malignant neoplasm of prostate; R17 Unspecified jaundice; E78.00 Pure hypercholesterolemia, unspecified
CPT/HCPCS: 36415; 80053; 80061; 82043; 82570; 83036; 85025; G0103

== ENCOUNTER → 2024-06-21 08:30 | Outpatient (CLI) | payer OTHER, SELFPAY | PROVIDERS: PCP Family Medicine; Visit Provider Nurse Practitioner Family | DX: J02.9 Acute pharyngitis, unspecified (principal) | CPT/HCPCS: 87070 ==

== ENCOUNTER → 2024-09-03 07:09 | Outpatient (CLI) | payer OTHER, SELFPAY ==
[2024-09-03 07:35] LABS: Add Manual Diff / Slide Review NO; Basophils Absolute Auto 0 /uL (0-100); Basophils Percent Auto 0.6 % (0-2); Eosinophils Absolute Auto 100 /uL (0-450); Eosinophils Percent Auto 1.8 % (2-4); Hematocrit 46.6 % (41-53); Lymphocytes Absolute Auto 2500 /uL (1100-4500); Lymphocytes Percent Auto 35.8 % (25-40); Mean Corpuscular HGB Conc 34.4 % (30-36); Mean Corpuscular Hemoglobin 31.3 PG (26-34); Mean Corpuscular Volume 90.8 fL (80-100); Monocytes Absolute Auto 500 /uL (0-900); Monocytes Percent Auto 7.5 % (3-14); Neutrophils Absolute Auto 3800 /uL (1500-7000); Neutrophils Percent Auto 54.3 % (50-75); Platelet Count 188 X10^3/uL (150-400); Red Blood Cell Count 5.13 X10^6/uL (4.5-5.9); Red Cell Distribution Width 13.9 % (11.6-14.8)
[2024-09-03 07:40] LABS: Hemoglobin A1C% w Est Avg Glu 5.1 % (4.0-6.0)
[2024-09-03 08:35] LABS: Alanine Aminotransferase 24 IU/L (<50); Albumin 4.5 g/dL (3.5-5.0); Albumin Globulin Ratio 1.8 (1.0-2.8); Alkaline Phosphatase 50 U/L (38-126); Aspartate Aminotransferase 26 IU/L (17-59); BUN Creatinine Ratio 8.4 (6-22); Bilirubin Total 2.2 mg/dL (0.2-1.3); Blood Urea Nitrogen 9 mg/dL (9-20); Calcium 9.3 mg/dL (8.4-10.2); Carbon Dioxide 27 mmol/L (22-32); Chloride 104 mmol/L (98-107); Cholesterol 164 mg/dL (140-199); Estimated Glomerular Filt Rate > 60 mL/min (>60); Globulin 2.5 g/dL (1.7-4.1); Glucose 103 mg/dL (80-110); HDL Cholesterol 67 mg/dL (40-60); HEMOLYSIS < 15 (0-50); LDL Cholesterol Calculated 77 mg/dL (<100); Potassium 4.5 mmol/L (3.4-5.1); Sodium 138 mmol/L (137-145); Triglycerides 100 mg/dL (35-150)
[2024-09-03 08:58] LABS: Creatinine Urine Random 236.53 mg/dL
[2024-09-03 09:02] LABS: Microalbumin Urine Random 0.7 mg/dL (0-1.6)
[2024-09-03 09:05] LABS: Prostate Specific Antigen Scrn 3.01 ng/mL (0.1-4.0); TSH w/ Reflex to FT4 2.06 uIU/mL (0.47-4.68)
== END ==
PROVIDERS: PCP Family Medicine; Referring Provider Family Medicine; Visit Provider Family Medicine
DX: R17 Unspecified jaundice (principal); R73.01 Impaired fasting glucose; E78.00 Pure hypercholesterolemia, unspecified; Z12.5 Encounter for screening for malignant neoplasm of prostate; N40.1 Benign prostatic hyperplasia with lower urinary tract symptoms; N13.8 Other obstructive and reflux uropathy; I10 Essential (primary) hypertension
CPT/HCPCS: 36415; 80053; 80061; 82043; 82570; 83036; 84443; 85025; G0103

== ENCOUNTER → 2024-12-09 14:21 | Outpatient (CLI) | payer OTHER, SELFPAY ==
[2024-12-09 14:45] LABS: D Dimer 235 ng/ml (<500)
[2024-12-09 16:01] LABS: Prostate Specific Antigen 1.89 ng/mL (0.10-4.00)
== END ==
LOC: LAB 14:22
PROVIDERS: PCP Family Medicine; Referring Provider Family Medicine; Visit Provider Family Medicine
DX: N40.1 Benign prostatic hyperplasia with lower urinary tract symptoms (principal); N13.8 Other obstructive and reflux uropathy; R97.20 Elevated prostate specific antigen [PSA]; R07.9 Chest pain, unspecified
CPT/HCPCS: 36415; 84153; 85379